=== PATIENT | female | born 1980 | race Caucasian/White ===

== ENCOUNTER 2019-05-20 13:46 | Inpatient (IN) | payer BC ==
[2019-05-20] MEDS ORDERED: Lactated Ringers 1000 ML Bag* 1,000 ML IV ONE ×2 (14:32→18:02)
[2019-05-20] MEDS ORDERED: Buffered Lidocaine 1% SYRIN* 1 ML/SYRINGE INTRADERM ONE (14:32)
--- NOTE | 2019-05-20 14:42 | HP ---
General Information - Reason for Visit Rupture of membranes approx 0100, contractions getting stronger since then. - General Information Maternal Age: 38 Grav: 2 Para: 0 SAB: 1 Estimated Due Date: 05/25/19 Determined By: LMP Maternal Blood Type and Rh: A Positive - Results this Serology/RPR Result: Non-Reactive Rubella Result: Immune HBsAg Result: Negative HIV Result: Negative GBS Culture Result: Negative Past Medical History Delivery History: See Records Delivery History Comment: No previous deliveries Pertinent Past Medical History: See Records Past Medical History Comment: Anxiety, no meds Migraine Ulcers Pertinent Past Surgical History: See Records Past Surgical History Comment: Oral sx 1996 Pertinent Family History: See Records Family History Comment: Prostate cancer Diabetes Stroke Skin cancer - Antepartal Records Antepartal Records: Reviewed, Complicated by: - AMA age 38 Review of Systems Constitutional: Uncomfortable CV Complaint: No Respiratory: Shortness of Breath: No Gastrointestinal: No Nausea/Vomiting, Normal Bowel Movement Genitourinary: Leaking Fluid, Spotting Musculoskeletal: Contractions Neurological: No Headache, No Visual Changes Movement: Normal Exam Allergies/Adverse Reactions: Allergies bactrim Allergy (Uncoded 05/20/19 14:07) Anxiety BP 149/94, repeat 138/86 HR 131, repeat 103 T 97.7 O2 98 RR 18 - Measurements Height: 5 ft 5.5 in Weight: 206 lb Body Mass Index (BMI): 33.7 Pre- Weight: 160 lb - Exam Breast: Breast Exam Deferred CVA: No CVA Tenderness Extremities: No Edema Heart: Normal Rhythm/Heart Sounds HEENT: No Significant Findings Lungs: Clear Bilaterally Rectal: Rectal Exam Deferred Reflexes: - - not elicited Thyroid: - - WNL @ entry to care - Abdominal Exam Abdomen Exam: Non-Tender, Fundal Height Consistent with Dates - Ultrasound/Biophysical Profile Ultrasound Status: Not Done Targeted Exam Findings See L&D Outpatient Visit Provider Note for Findings: Yes - Patient declines cervical exam. Estimated Weight: 8lb Presenting Part: Vertex Membrane Status: SROM Amniotic Fluid Evaluation: Positive ROM Plus Bleeding/Discharge: Bloody Show EFM Findings - External Monitor Findings Baseline Heart Rate: 155 External Monitor Findings: Accelerations Present, No Pattern of Variable or Late Decelerations, Variability Moderate Contractions: Regular, Moderate, Strong, 45-90 Seconds Contraction Frequency: Q 3-4 min Assessment/Plan - Assessment IUP @ 38+6 weeks gestation with spontaneous rupture of membranes in early or active labor. No evidence acidemia - Plan Plan: Admit - Anticipate Vaginal Delivery Plan Comment: Admit to L&D. Patient desires minimal intervention and declines vaginal exam on admission. Would like to get in tub at this time. States that she is aware of pain management options and will ask if needed; prefers not to be offered. Will plan intermittent monitoring. Anticipate SVB. - Date/Time of Admission Date of Admission: 05/20/19 Time of Admission: 14:25
[2019-05-20] MEDS ORDERED: Lactated Ringers 1000 ML Bag* 1,000 ML IV SCH ×2 (15:00→19:00)
[2019-05-20 16:06] LABS: Urine Benzodiazepine Screen None Detected (None Detect); Urine Opiates Screen None Detected (None Detect)
[2019-05-20] MEDS ORDERED: OBEPIDURAL* 0 ML EPIDURAL ONE (17:13)
[2019-05-20 17:26] LABS: ABS Lymphocytes 1.6 10^3/ul (1.0-4.8); ABS Monocytes 0.6 10^3/ul (0-0.8); ABS Neutrophils 8.6 10^3/ul (1.5-7.7); Eosinophil % 0.4 %; Hematocrit 36 % (35-47); Hemoglobin 11.9 g/dL (12.0-16.0); Lymphocyte % 14.5 %; Mean Corpuscular HGB Conc 33 g/dL (31-36); Mean Corpuscular Hemoglobin 28 pg (27-31); Mean Corpuscular Volume 85 fL (80-97); Mean Platelet Volume 9.1 fL (7.4-10.4); Nucleated Red Blood Cells % 0.1; Platelet Count 241 10^3/uL (150-450); Red Blood Count 4.24 10^6 /uL (3.70-4.87); Red Cell Distribution Width 18 % (10-15); White Blood Count 10.9 10^3/uL (3.5-10.8)
[2019-05-20] MEDS ORDERED: OBEPIDURAL* 250 ML EPIDURAL ONE (17:54)
[2019-05-20] MEDS ORDERED: Phenylephrine 40 MCG/ML SYRINGE IV PUSH PRN ×2 (18:02)
[2019-05-20] MEDS ORDERED: Sodium Citrate/Citric Acid* 15 ML UDC PO PRN (18:02)
[2019-05-20] MEDS ORDERED: OBEPIDURAL* 250 ML EPIDURAL SCH (19:00)
[2019-05-20] MEDS ORDERED: Calcium Carbonate CHEW TAB* 500 MG (TUMS) PO PRN (19:08)
--- NOTE | 2019-05-20 20:41 | PN ---
Progress Note - Progress Note Date of Service: 05/20/19 - Note time 1905 Note: S: Patient comfortable with epidural. States she can feel some "subtle" pain in pelvis at times. Also reports heartburn. O: VE deferred FHT 145, Cat 1 VSS, afebrile UCs q 3-5 min A: IUP in active labor Rupture of membranes No evidence acidemia P: Encouraged side to side positioning with peanut ball or side-lying release. Encouraged letting molder sweep guide her in this as well. Also recommend rest/sleep for patient and partner. Will monitor contraction pattern. Can recheck cervix with increased pressure. Anticipate SVB.
--- NOTE | 2019-05-20 20:56 | PN ---
Progress Note - Progress Note Date of Service: 05/20/19 Note: S: Sleeping between contractions but feeling more pressure. O: VE 7cm/100/0 FHT 150, Cat 1 UCs q 4-5min VSS, afebrile A: IUP in active labor No evidence acidemia P: Continue side to side position changes.
[2019-05-20] MEDS ORDERED: Famotidine IV* 10 MG/ML 2 ML (20 mg) IV SLOW PU PRN (21:41)
[2019-05-20] MEDS ORDERED: Oxytocin in LR* 20 UNITS/1,000 ML BAG IVPB ONE (23:27)
[2019-05-21] MEDS ORDERED: Glycerin ADULT SUPP PR PRN (02:31)
[2019-05-21] MEDS ORDERED: Witch Hazel PAD* JAR TOPICAL PRN (02:31)
[2019-05-21] MEDS ORDERED: Dibucaine 1% 28.35 GM TUBE PR PRN (02:31)
[2019-05-21] MEDS ORDERED: Lactated Ringers 1000 ML Bag* 1,000 ML IV SCH (03:00)
[2019-05-21] MEDS ORDERED: Oxytocin in LR* 20 UNITS/1,000 ML BAG IVPB SCH (03:00)
[2019-05-21] MEDS: Ibuprofen TAB* 600 MG PO PRN ×3 (03:25→23:04)
[2019-05-21] MEDS: Acetaminophen TAB* 325 MG PO PRN ×2 (03:25→08:22)
--- NOTE | 2019-05-21 08:06 | PROCNOTE ---
[facility] OB: Delivery Note - Delivery A Date of : 05/21/19 Time of : 01:52 [place] Sex: Male Weight at : 9 lb 9 oz Score 1 Minute: 6 Score 5 Minutes: 8 Gestational Age in Weeks and Days at Delivery: 39 Weeks and 3 Days Delivery Method: Spontaneous Vaginal Labor: Spontaneous Did Patient attempt ?: N/A, No Previous Amniotic Fluid: Clear Estimated Blood Loss: 300 Anesthesia/Analgesia: CEI for Labor Delivered By: Titus Meyer - Nursery Level of Nursery: Regular/Bedside - Perineum Perineal Injury: Midline Episiotomy, Right Mediolateral Perineal Repair: By Delivering Practioner - Events Delivery Events of Note: Pitocin Only After Delivery - Additional Delivery Notes Additional Delivery Notes: Patient admitted with spontaneous rupture of membranes and progression to active labor. Received epidural as desired with good effect, able to rest and progress to complete with urge to push. Coached through several pushing positions with increasing efficiency. Length of active labor 6'43", pushed 3.5 hours. Lidocaine administered and small RML episiotomy cut with prolonged and FHT decelerations. Baby born OA to transverse shoulders @ 0152, loose nucal and body cord unwrapped after delivery. Significant moulding and caput. To maternal abdomen, initially stunned. HR >110, respirations with dry/ stimulation and bulb syringe. Cord doubly clamped and cut by CNM. To warmer briefly for eval then returned to mother stable. Placenta delivered @ 0158. Fundus firm to massage and with pitocin infusing. Straightforward second degree extension of episiotomy repaired with good hemostasis. EBL 300ml. Baby at breast to initiate . Mother and baby stable.
[2019-05-21] MEDS: Docusate CAP* 100 MG PO SCH ×3 (08:22→23:05)
[2019-05-22] MEDS: Ibuprofen TAB* 600 MG PO PRN ×4 (05:14→23:45)
[2019-05-22] MEDS: Ferrous Gluconate TAB* 324 MG TAB PO SCH ×2 (09:31→21:00)
[2019-05-22 09:35] LABS: ABS Eosinophils 0.1 10^3/ul (0-0.6); ABS Lymphocytes 1.7 10^3/ul (1.0-4.8); ABS Monocytes 0.5 10^3/ul (0-0.8); ABS Neutrophils 8.7 10^3/ul (1.5-7.7); Eosinophil % 0.6 %; Hematocrit 32 % (35-47); Hemoglobin 10.6 g/dL (12.0-16.0); Lymphocyte % 15.2 %; Mean Corpuscular HGB Conc 33 g/dL (31-36); Mean Corpuscular Hemoglobin 29 pg (27-31); Mean Corpuscular Volume 86 fL (80-97); Mean Platelet Volume 8.6 fL (7.4-10.4); Platelet Count 190 10^3/uL (150-450); Red Blood Count 3.72 10^6 /uL (3.70-4.87); Red Cell Distribution Width 19 % (10-15); White Blood Count 10.9 10^3/uL (3.5-10.8)
[2019-05-22] MEDS: Docusate CAP* 100 MG PO SCH ×3 (11:06→20:27)
[2019-05-22] MEDS: Acetaminophen TAB* 325 MG PO PRN (15:00)
--- NOTE | 2019-05-22 16:50 | PTEDU ---
Patient Name: MAYITO ELLIOTT MAYITO ELLIOTT selected video: BBOB: Nurturing Your Gorgeous &Growing Baby by to view on 05/22/2019 at 4:49:01 PM [id number]
[2019-05-22 20:14] VITALS: BP 98/80
[2019-05-23] MEDS: Ibuprofen TAB* 600 MG PO PRN (07:52)
[2019-05-23] MEDS: Docusate CAP* 100 MG PO SCH (07:52)
== END 2019-05-23 13:18 | disposition home or self-care (01) | DRG 560 ==
LOC: MCHOBOUT 13:46 → MCHOB 14:52
PROVIDERS: ADMIT Midwife; ATTEND Midwife
PROC: 10E0XZZ Delivery of Products of Conception, External Approach (ICD-10-PCS; principal; 2019-05-20)
PROC: 0W8NXZZ Division of Female Perineum, External Approach (ICD-10-PCS; 2019-05-20)
PROC: 4A1HXCZ Monitoring of Products of Conception, Cardiac Rate, External Approach (ICD-10-PCS; 2019-05-20)
PROC: 0KQM0ZZ Repair Perineum Muscle, Open Approach (ICD-10-PCS; 2019-05-20)
DX: O69.81X0 Labor and delivery complicated by cord around neck, without compression, not applicable or unspecified (principal); Z37.0 Single live birth; O76 Abnormality in fetal heart rate and rhythm complicating labor and delivery; O69.82X0 Labor and delivery complicated by other cord entanglement, without compression, not applicable or unspecified; O70.1 Second degree perineal laceration during delivery; Z88.1 Allergy status to other antibiotic agents; Z3A.39 39 weeks gestation of pregnancy
CPT/HCPCS: 36415; 80307; 85025; A9270-GY